=== PATIENT | female | born 1945 | race Hispanic/Latino ===

== ENCOUNTER 2017-12-19 10:54 | Inpatient (IN) | payer MEDICARE ==
[~2017-12-19] VITALS: Ht 157.5 cm; Wt 102.0 kg
[2017-12-19] MEDS ORDERED: FUROSEMIDE 10 MG/ML 4ML VIAL ONE (11:22)
[2017-12-19] MEDS ORDERED: NITROGLYCERIN 1GM/1 INCH PACKET TD ONE (11:22)
[2017-12-19 11:25] LABS: ABG BASE EXCESS -8.3 mmol/L (-2.0-3.0); ABG HCO3 16.2 mmol/L (21.0-28.0); ABG OXYGEN SATURATION 99.3 % (95.0-99.0); ABG PCO2 31 mmHg (32-45)
[2017-12-19 11:32] LABS: BASOPHILS % (AUTO) 0.5 % (0.0-5.0); EOSINOPHILS % (AUTO) 1.1 % (0.0-8.0); HEMATOCRIT 25.5 % (36-48); MEAN CORPUSCULAR HEMOGLOBIN 30.9 pg (27.0-33.0); MEAN CORPUSCULAR HGB CONC 34.1 g/dL (32.0-36.0); MEAN CORPUSCULAR VOLUME 90.6 fL (79-99); MONOCYTES % (AUTO) 6.3 % (3.0-13.0); NEUTROPHILS % (AUTO) 84.1 % (40.0-77.0); PLATELET COUNT (AUTO) 158 K/uL (130-400); RED BLOOD CELL COUNT(AUTO) 2.81 MIL/uL (4.00-5.50); RED CELL DISTRIBUTION WIDTH 14.8 % (11.0-15.5); WHITE BLOOD COUNT (AUTO) 7.4 K/uL (4.8-10.8)
[2017-12-19 11:35] LABS: POTASSIUM 5.2 mmol/L (3.5-5.1)
[2017-12-19 11:40] LABS: ALBUMIN 2.6 g/dL (3.5-5.0); BILIRUBIN,TOTAL 0.3 mg/dL (0.2-1.0); TOTAL PROTEIN, SERUM 6.8 g/dL (6.0-8.3)
[2017-12-19 11:57] LABS: B-TYPE NATRIURETIC PEPTIDE 761 pg/mL (0-100)
[2017-12-19 12:11] LABS: INR 0.99 (0.85-1.15); PARTIAL THROMBOPLASTIN TIME 37.7 SEC (26.3-35.5); PROTHROMBIN TIME 10.4 SEC (9.6-11.6)
[2017-12-19] MEDS ORDERED: MORPHINE SULFATE 2 MG/ML 1ML SYG IV PRN (13:45)
[2017-12-19] MEDS ORDERED: LACTULOSE 20 GM/30 ML UDCUP PO PRN (13:45)
[2017-12-19] MEDS: NITROGLYCERIN 1GM/1 INCH PACKET TD SCH ×2 (13:45→20:45)
[2017-12-19] MEDS ORDERED: ONDANSETRON HCL 4 MG/2 ML VIAL IV PRN (13:45)
[2017-12-19] MEDS ORDERED: HYDRALAZINE HCL 20 MG/ML VIAL IV PRN (13:45)
[2017-12-19] MEDS: FUROSEMIDE 10 MG/ML 4ML VIAL IVP SCH ×2 (14:00→20:43)
[2017-12-19 14:49] VITALS: BP 150/67
[2017-12-19] MEDS ORDERED: IRON18TA PO (15:25)
[2017-12-19] MEDS ORDERED: ISOS60TA4 PO (15:25)
[2017-12-19] MEDS ORDERED: ASPI-555 PO (15:25)
[2017-12-19] MEDS ORDERED: LABE200T5 PO (15:25)
[2017-12-19] MEDS ORDERED: EZET10TA26 PO (15:25)
[2017-12-19] MEDS ORDERED: SODI650T PO (15:25)
[2017-12-19] MEDS ORDERED: FLUT1BLS IH (15:25)
[2017-12-19] MEDS ORDERED: CHOL500050 PO (15:25)
[2017-12-19] MEDS ORDERED: ATOR10 PO (15:25)
[2017-12-19] MEDS ORDERED: TRAZ-185 PO (15:25)
[2017-12-19] MEDS ORDERED: AMLO5TAB7 PO (15:25)
[2017-12-19 16:16] VITALS: BP 148/53
[2017-12-19] MEDS: INSULIN LISPRO 100 UNIT/ML 3ML SQ SCH (16:57)
[2017-12-19] MEDS ORDERED: INSU100I21 SQ (18:10)
[2017-12-19 19:22] VITALS: BP 162/57
[2017-12-19] MEDS: METOPROLOL TARTRATE 25 MG TAB PO SCH (20:44)
[2017-12-19] MEDS: ACETAMINOPHEN 325 MG TAB PO PRN (20:47)
[2017-12-19] MEDS: INSULIN GLARGINE 100 UNITS/ML 10 ML VIAL SQ SCH (21:00)
[2017-12-19 23:25] VITALS: BP 174/71
[2017-12-20] VITALS (7 sets, daily range): BP systolic 144–171; BP diastolic 55–68
[2017-12-20 04:16] LABS: BASOPHILS % (AUTO) 0.5 % (0.0-5.0); EOSINOPHILS % (AUTO) 3.5 % (0.0-8.0); HEMATOCRIT 24.9 % (36-48); LYMPHOCYTES % (AUTO) 15.5 % (21.0-51.0); MEAN CORPUSCULAR HEMOGLOBIN 30.5 pg (27.0-33.0); MEAN CORPUSCULAR HGB CONC 33.5 g/dL (32.0-36.0); MONOCYTES % (AUTO) 8.3 % (3.0-13.0); NEUTROPHILS % (AUTO) 72.2 % (40.0-77.0); NUCLEATED RED BLOOD CELLS 0.1 % (0.0-0.19); PLATELET COUNT (AUTO) 156 K/uL (130-400); RED BLOOD CELL COUNT(AUTO) 2.74 MIL/uL (4.00-5.50); RED CELL DISTRIBUTION WIDTH 14.7 % (11.0-15.5); WHITE BLOOD COUNT (AUTO) 6.3 K/uL (4.8-10.8)
[2017-12-20 04:30] LABS: ALBUMIN 2.4 g/dL (3.5-5.0); BILIRUBIN,TOTAL 0.3 mg/dL (0.2-1.0); CREATININE 4.3 mg/dL (0.5-1.5); POTASSIUM 4.8 mmol/L (3.5-5.1); TOTAL PROTEIN, SERUM 6.5 g/dL (6.0-8.3)
[2017-12-20] MEDS: NITROGLYCERIN 1GM/1 INCH PACKET TD SCH ×3 (04:51→21:15)
[2017-12-20 04:58] LABS: B-TYPE NATRIURETIC PEPTIDE 473 pg/mL (0-100)
[2017-12-20] MEDS: INSULIN LISPRO 100 UNIT/ML 3ML SQ SCH ×3 (06:19→16:36)
[2017-12-20] MEDS ORDERED: ENOXAPARIN SODIUM 40 MG/0.4 ML SYRINGE SQ SCH (09:00)
[2017-12-20] MEDS: METOPROLOL TARTRATE 25 MG TAB PO SCH ×2 (09:04→21:14)
[2017-12-20] MEDS: FUROSEMIDE 10 MG/ML 4ML VIAL IVP SCH ×3 (09:04→21:14)
[2017-12-20] MEDS: PANTOPRAZOLE SODIUM 40 MG TABLET.DR PO SCH (09:10)
[2017-12-20] MEDS ORDERED: METOLAZONE 2.5 MG TABLET PO SCH (09:30)
[2017-12-20] MEDS: SODIUM BICARBONATE 650 MG TAB PO SCH ×2 (10:10→21:14)
[2017-12-20] MEDS: AMLODIPINE BESYLATE 5 MG TAB PO SCH (21:14)
[2017-12-20] MEDS: INSULIN GLARGINE 100 UNITS/ML 10 ML VIAL SQ SCH (21:25)
[2017-12-21 03:45] VITALS: BP 154/53
[2017-12-21 04:01] LABS: HEMATOCRIT 24.3 % (36-48); MEAN CORPUSCULAR HEMOGLOBIN 30.6 pg (27.0-33.0); MEAN CORPUSCULAR HGB CONC 33.8 g/dL (32.0-36.0); MEAN CORPUSCULAR VOLUME 90.4 fL (79-99); PLATELET COUNT (AUTO) 176 K/uL (130-400); RED BLOOD CELL COUNT(AUTO) 2.68 MIL/uL (4.00-5.50); RED CELL DISTRIBUTION WIDTH 14.5 % (11.0-15.5); WHITE BLOOD COUNT (AUTO) 6.3 K/uL (4.8-10.8)
[2017-12-21 04:02] LABS: CREATININE 4.6 mg/dL (0.5-1.5); POTASSIUM 4.6 mmol/L (3.5-5.1)
[2017-12-21 04:04] LABS: % IRON SATURATION 10.3 % (22-44)
[2017-12-21 04:28] LABS: B-TYPE NATRIURETIC PEPTIDE 299 pg/mL (0-100)
[2017-12-21] MEDS: NITROGLYCERIN 1GM/1 INCH PACKET TD SCH ×3 (05:56→21:10)
[2017-12-21] MEDS: INSULIN LISPRO 100 UNIT/ML 3ML SQ SCH ×3 (06:48→17:00)
[2017-12-21 07:19] VITALS: BP 157/56
[2017-12-21] MEDS: EPOETIN ALFA 10,000 UNIT/ML VIAL SQ SCH (08:15)
[2017-12-21] MEDS ORDERED: COMPOUND IV MISC 1 EACH IVSOLN MISC PRN (08:30)
[2017-12-21] MEDS: LABETALOL HCL 100 MG TABLET PO SCH ×2 (10:22→20:54)
[2017-12-21] MEDS: SODIUM BICARBONATE 650 MG TAB PO SCH ×2 (10:29→20:53)
[2017-12-21] MEDS: ENOXAPARIN SODIUM 30 MG/0.3 ML SQ SCH (10:29)
[2017-12-21] MEDS: FUROSEMIDE 10 MG/ML 4ML VIAL IVP SCH ×2 (10:30→20:54)
[2017-12-21] MEDS: PANTOPRAZOLE SODIUM 40 MG TABLET.DR PO SCH (10:30)
[2017-12-21] MEDS: AMLODIPINE BESYLATE 5 MG TAB PO SCH ×2 (10:30→20:53)
[2017-12-21] MEDS: IRON SUCROSE COMPLEX 100 MG in SODIUM CHLORIDE 0.9% 50 ML IV SCH (10:31)
[2017-12-21 11:25] VITALS: BP 162/53
[2017-12-21 16:12] VITALS: BP 147/63
[2017-12-21 19:11] VITALS: BP 142/56
[2017-12-21] MEDS: INSULIN GLARGINE 100 UNITS/ML 10 ML VIAL SQ SCH (20:55)
[2017-12-21] MEDS: ACETAMINOPHEN 325 MG TAB PO PRN (22:57)
[2017-12-21 23:21] VITALS: BP 131/46
[2017-12-22 03:58] VITALS: BP 129/40
[2017-12-22] MEDS: INSULIN LISPRO 100 UNIT/ML 3ML SQ SCH ×3 (05:36→17:27)
[2017-12-22] MEDS: NITROGLYCERIN 1GM/1 INCH PACKET TD SCH ×4 (06:14→21:03)
[2017-12-22 07:51] VITALS: BP 138/55
[2017-12-22] MEDS: EPOETIN ALFA 10,000 UNIT/ML VIAL SQ SCH (08:15)
[2017-12-22 09:06] LABS: HEMATOCRIT 24.1 % (36-48); MEAN CORPUSCULAR HEMOGLOBIN 30.1 pg (27.0-33.0); MEAN CORPUSCULAR HGB CONC 33.5 g/dL (32.0-36.0); MEAN CORPUSCULAR VOLUME 89.8 fL (79-99); PLATELET COUNT (AUTO) 168 K/uL (130-400); RED BLOOD CELL COUNT(AUTO) 2.69 MIL/uL (4.00-5.50); RED CELL DISTRIBUTION WIDTH 13.9 % (11.0-15.5); WHITE BLOOD COUNT (AUTO) 6.1 K/uL (4.8-10.8)
[2017-12-22 09:28] LABS: CREATININE 5.4 mg/dL (0.5-1.5); POTASSIUM 4.6 mmol/L (3.5-5.1)
[2017-12-22] MEDS: AMLODIPINE BESYLATE 5 MG TAB PO SCH ×2 (09:38→20:59)
[2017-12-22] MEDS: LABETALOL HCL 100 MG TABLET PO SCH ×2 (09:38→21:00)
[2017-12-22 10:04] LABS: B-TYPE NATRIURETIC PEPTIDE 244 pg/mL (0-100)
[2017-12-22] MEDS ORDERED: REGADENOSON 0.4 MG/5 ML PF SYG IVP SCH (11:00)
[2017-12-22 13:31] VITALS: BP 101/60
[2017-12-22] MEDS: IRON SUCROSE COMPLEX 100 MG in SODIUM CHLORIDE 0.9% 50 ML IV SCH (14:31)
[2017-12-22] MEDS: PREGABALIN 25 MG CAP PO SCH (14:32)
[2017-12-22] MEDS: ENOXAPARIN SODIUM 30 MG/0.3 ML SQ SCH (14:32)
[2017-12-22] MEDS: PANTOPRAZOLE SODIUM 40 MG TABLET.DR PO SCH (14:33)
[2017-12-22] MEDS: FUROSEMIDE 10 MG/ML 4ML VIAL IVP SCH ×2 (14:33→21:00)
[2017-12-22] MEDS: SODIUM BICARBONATE 650 MG TAB PO SCH ×2 (14:33→21:00)
[2017-12-22 16:00] VITALS: BP 132/54
[2017-12-22 19:27] VITALS: BP 132/51
[2017-12-22] MEDS: INSULIN GLARGINE 100 UNITS/ML 10 ML VIAL SQ SCH (21:01)
[2017-12-22 23:23] VITALS: BP 116/40
[2017-12-23 03:39] VITALS: BP 124/51
[2017-12-23 03:59] LABS: HEMATOCRIT 24.8 % (36-48); MEAN CORPUSCULAR HEMOGLOBIN 30.2 pg (27.0-33.0); MEAN CORPUSCULAR HGB CONC 33.7 g/dL (32.0-36.0); MEAN CORPUSCULAR VOLUME 89.6 fL (79-99); PLATELET COUNT (AUTO) 188 K/uL (130-400); RED BLOOD CELL COUNT(AUTO) 2.76 MIL/uL (4.00-5.50); RED CELL DISTRIBUTION WIDTH 14.2 % (11.0-15.5); WHITE BLOOD COUNT (AUTO) 5.2 K/uL (4.8-10.8)
[2017-12-23 04:09] LABS: CREATININE 5.2 mg/dL (0.5-1.5); POTASSIUM 4.3 mmol/L (3.5-5.1)
[2017-12-23 04:14] LABS: B-TYPE NATRIURETIC PEPTIDE 226 pg/mL (0-100)
[2017-12-23] MEDS: NITROGLYCERIN 1GM/1 INCH PACKET TD SCH (05:08)
[2017-12-23 07:59] VITALS: BP 137/47
[2017-12-23] MEDS: EPOETIN ALFA 10,000 UNIT/ML VIAL SQ SCH (08:15)
[2017-12-23] MEDS: SODIUM BICARBONATE 650 MG TAB PO SCH (09:08)
[2017-12-23] MEDS: PANTOPRAZOLE SODIUM 40 MG TABLET.DR PO SCH (09:08)
[2017-12-23] MEDS: LABETALOL HCL 100 MG TABLET PO SCH (09:08)
[2017-12-23] MEDS: AMLODIPINE BESYLATE 5 MG TAB PO SCH (09:09)
[2017-12-23] MEDS: PREGABALIN 25 MG CAP PO SCH (09:09)
[2017-12-23] MEDS: INSULIN LISPRO 100 UNIT/ML 3ML SQ SCH ×2 (09:18→12:04)
[2017-12-23] MEDS: ENOXAPARIN SODIUM 30 MG/0.3 ML SQ SCH (09:19)
[2017-12-23] MEDS ORDERED: FURO40TA5 PO (09:29)
[2017-12-23] MEDS: IRON SUCROSE COMPLEX 100 MG in SODIUM CHLORIDE 0.9% 50 ML IV SCH (11:57)
[2017-12-23 12:02] VITALS: BP 131/47
== END 2017-12-23 15:35 | disposition home or self-care (01) | DRG 291 ==
LOC: EDH 10:54 → EDHIP 13:44 → 2CH 14:46 → 2AH 12-21 18:58
PROVIDERS: ADMIT Internal Medicine; ATTEND Internal Medicine
PROC: 5A09357 Assistance with Respiratory Ventilation, Less than 24 Consecutive Hours, Continuous Positive Airway Pressure (ICD-10-PCS; principal; 2017-12-20)
PROC: 5A09357 Assistance with Respiratory Ventilation, Less than 24 Consecutive Hours, Continuous Positive Airway Pressure (ICD-10-PCS; 2017-12-21)
PROC: 5A09357 Assistance with Respiratory Ventilation, Less than 24 Consecutive Hours, Continuous Positive Airway Pressure (ICD-10-PCS; 2017-12-22)
PROC: 5A09357 Assistance with Respiratory Ventilation, Less than 24 Consecutive Hours, Continuous Positive Airway Pressure (ICD-10-PCS; 2017-12-23)
DX: I13.2 Hypertensive heart and chronic kidney disease with heart failure and with stage 5 chronic kidney disease, or end stage renal disease (principal); I50.33 Acute on chronic diastolic (congestive) heart failure; N18.6 End stage renal disease; I16.1 Hypertensive emergency; Z68.41 Body mass index [BMI] 40.0-44.9, adult; Z66 Do not resuscitate; E11.22 Type 2 diabetes mellitus with diabetic chronic kidney disease; E66.01 Morbid (severe) obesity due to excess calories; E78.2 Mixed hyperlipidemia; I25.10 Atherosclerotic heart disease of native coronary artery without angina pectoris; K59.00 Constipation, unspecified; G47.00 Insomnia, unspecified; D64.9 Anemia, unspecified; G47.30 Sleep apnea, unspecified; I35.8 Other nonrheumatic aortic valve disorders; E11.21 Type 2 diabetes mellitus with diabetic nephropathy; Z95.1 Presence of aortocoronary bypass graft; Z83.3 Family history of diabetes mellitus; Z82.49 Family history of ischemic heart disease and other diseases of the circulatory system; Z79.899 Other long term (current) drug therapy; Z79.82 Long term (current) use of aspirin; Z91.19 Patient's noncompliance with other medical treatment and regimen; Z90.49 Acquired absence of other specified parts of digestive tract; Z99.2 Dependence on renal dialysis
CPT/HCPCS: 36415; 36600; 71045; 76770; 78452; 80048; 80053; 82550; 82803; 82948; 83540; 83550; 83880; 84484; 85025; 85027; 85610; 85730; 87804; 93005; 93017; 93970; 94660; 96374; 97039; 99291; A4344; A9500; J0885; J1650; J1756; J1940; J2785; Q2038

== ENCOUNTER → 2020-02-07 | Outpatient (CLI) | payer MEDICARE ==
[~2020-02-07] VITALS: Ht 154.9 cm; Wt 109.2 kg
[~2020-02-07] MED LIST: ACET-66 PO; ALPR0.255 PO; AMLO-257 PO; AMLO-258 PO; ASPI-556 PO; ATOR10 PO; CHOL500050 PO; EZET10TA48 PO; FLUT1BLS IH; FOLI0.8T22 PO; FURO40TA5 PO; INSU100I21 SQ; INSU100V12 SQ; IRON18TA PO; ISOS60TA4 PO; LABE200T5 PO; NITR0.4T50 SL; SEVE800PW PO; SODI650T PO; SODIUM CHLORIDE 0.9% 500ML 500 ML IV SCH; TRAZ-185 PO
[2020-02-07 10:15] LABS: BASOPHILS % (AUTO) 0.4 % (0.0-5.0); EOSINOPHILS % (AUTO) 2.6 % (0.0-8.0); HEMATOCRIT 32.4 % (36-48); LYMPHOCYTES % (AUTO) 22.2 % (21.0-51.0); MEAN CORPUSCULAR HEMOGLOBIN 32.7 pg (27.0-33.0); MEAN CORPUSCULAR HGB CONC 32.4 g/dL (32.0-36.0); MEAN CORPUSCULAR VOLUME 100.9 fL (79-99); MONOCYTES % (AUTO) 8.7 % (3.0-13.0); NEUTROPHILS % (AUTO) 65.9 % (40.0-77.0); PLATELET COUNT (AUTO) 156 K/uL (130-400); RED BLOOD CELL COUNT(AUTO) 3.21 MIL/uL (4.00-5.50); RED CELL DISTRIBUTION WIDTH 13.7 % (11.0-15.5); WHITE BLOOD COUNT (AUTO) 5.1 K/uL (4.8-10.8)
[2020-02-07 10:18] LABS: CREATININE 5.3 mg/dL (0.5-1.5); POTASSIUM 4.5 mmol/L (3.5-5.1)
[2020-02-07 10:23] LABS: INR 1.07 (0.85-1.15); PROTHROMBIN TIME 11.4 SEC (9.6-11.6)
[2020-02-07 10:25] LABS: PARTIAL THROMBOPLASTIN TIME 29.1 SEC (26.3-35.5)
[2020-02-11 09:19] VITALS: BP 157/62
== END ==
LOC: EDSTATUS 09:00 → DAH 10:00
PROVIDERS: ATTEND Internal Medicine Cardiovascular Disease
DX: Z01.818 Encounter for other preprocedural examination (principal); I25.119 Atherosclerotic heart disease of native coronary artery with unspecified angina pectoris; J90 Pleural effusion, not elsewhere classified; Z79.01 Long term (current) use of anticoagulants
CPT/HCPCS: 36415; 71045; 80048; 85025; 85610; 85730; 93005

== ENCOUNTER 2020-03-11 07:12 | Day surgery (SDC) | payer MEDICARE ==
[2020-03-06 10:52] LABS: BASOPHILS % (AUTO) 0.4 % (0.0-5.0); EOSINOPHILS % (AUTO) 2.2 % (0.0-8.0); HEMATOCRIT 34.2 % (36-48); LYMPHOCYTES % (AUTO) 23.9 % (21.0-51.0); MEAN CORPUSCULAR HEMOGLOBIN 32.2 pg (27.0-33.0); MEAN CORPUSCULAR HGB CONC 32.5 g/dL (32.0-36.0); MEAN CORPUSCULAR VOLUME 99.1 fL (79-99); NEUTROPHILS % (AUTO) 64.1 % (40.0-77.0); PLATELET COUNT (AUTO) 170 K/uL (130-400); RED BLOOD CELL COUNT(AUTO) 3.45 MIL/uL (4.00-5.50); RED CELL DISTRIBUTION WIDTH 14.2 % (11.0-15.5); WHITE BLOOD COUNT (AUTO) 5.5 K/uL (4.8-10.8)
[2020-03-06 11:00] LABS: CREATININE 5.9 mg/dL (0.5-1.5); POTASSIUM 4.9 mmol/L (3.5-5.1)
[2020-03-06 11:03] LABS: INR 1.08 (0.85-1.15); PROTHROMBIN TIME 11.5 SEC (9.6-11.6)
[2020-03-06 11:04] LABS: PARTIAL THROMBOPLASTIN TIME 28.4 SEC (26.3-35.5)
[2020-03-07 09:46] VITALS: BP 150/69
[~2020-03-11] VITALS: Ht 157.5 cm; Wt 108.7 kg
[2020-03-11] VITALS (9 sets, daily range): BP systolic 127–148; BP diastolic 47–62
[~2020-03-11 07:12] MED LIST changes: -AMLO-257 PO; -CHOL500050 PO; -FURO40TA5 PO; -INSU100I21 SQ; -IRON18TA PO; -ISOS60TA4 PO; +ISOS60TA77 PO; -TRAZ-185 PO
[2020-03-11] MEDS ORDERED: SODIUM CHLORIDE 0.9% 1000ML 1,000 ML IV ONE (08:28)
[2020-03-11] MEDS ORDERED: HYDR-3421 PO (09:10)
[2020-03-11] MEDS ORDERED: NITROGLYCERIN 2 MG/VIAL VIAL IV ONE (09:15)
[2020-03-11] MEDS ORDERED: BIVALIRUDIN 250 MG/VIAL IV ONE (09:15)
[2020-03-11] MEDS ORDERED: IOHEXOL 350 MG/ML 100ML INFUS..BTL IV ONE (09:15)
[2020-03-11] MEDS ORDERED: FENTANYL CITRATE PF 50 MCG/1 ML 2ML VIAL ONE (09:16)
[2020-03-11] MEDS ORDERED: LIDOCAINE HCL 2% 20ML ONE (09:16)
[2020-03-11] MEDS ORDERED: MIDAZOLAM HCL 1 MG/ML 2ML VIAL ONE (09:16)
[2020-03-11] MEDS ORDERED: SODIUM CHLORIDE 0.9% 10 ML VIAL IVP SCH (10:30)
[2020-03-11] MEDS ORDERED: DEXTROSE 50%-WATER 50 ML DISP.SYRIN IV PRN (10:30)
[2020-03-11] MEDS ORDERED: INSULIN HUMULIN R 100 UNIT/ML 3ML SQ SCH (11:30)
== END 2020-03-11 15:00 | disposition home or self-care (01) ==
LOC: DAH 07:12
PROVIDERS: ATTEND Internal Medicine Cardiovascular Disease
DX: I25.118 Atherosclerotic heart disease of native coronary artery with other forms of angina pectoris (principal); Z95.1 Presence of aortocoronary bypass graft; E78.5 Hyperlipidemia, unspecified; E66.01 Morbid (severe) obesity due to excess calories; R94.39 Abnormal result of other cardiovascular function study; I12.0 Hypertensive chronic kidney disease with stage 5 chronic kidney disease or end stage renal disease; E11.22 Type 2 diabetes mellitus with diabetic chronic kidney disease; N18.6 End stage renal disease; Z90.49 Acquired absence of other specified parts of digestive tract; Z98.890 Other specified postprocedural states; G47.30 Sleep apnea, unspecified; Z99.89 Dependence on other enabling machines and devices; Z88.8 Allergy status to other drugs, medicaments and biological substances; Z79.899 Other long term (current) drug therapy
CPT/HCPCS: 36415; 71045; 80048; 82948 ×2; 85025; 85610; 85730; 93005; 93459; A4215; A4216; A4221; A4222; A4223 ×3; A4606; A4663; C1760; C1894 ×2; J1644; J3010; J3490 ×2; J7030; Q9965; Q9967; 99156; 99157; J0583; J2250

== ENCOUNTER 2022-12-21 06:19 | Day surgery (SDC) | payer OTHER, MEDICARE ==
[~2022-12-21] VITALS: Ht 162.6 cm; Wt 104.3 kg
[2022-12-21] VITALS (15 sets, daily range): BP systolic 113–141; BP diastolic 64–81; PULSE 68–117; RESP 13–20
[~2022-12-21 06:19] MED LIST changes: +HYDR-3421 PO; -LABE200T5 PO; +LABE200T7 PO; -NITR0.4T50 SL; -SODIUM CHLORIDE 0.9% 500ML 500 ML IV SCH
[2022-12-21] MEDS ORDERED: GABA300C PO (11:11)
[2022-12-21] MEDS ORDERED: PANT40TA54 PO (11:11)
[2022-12-21] MEDS ORDERED: LIDOCAINE HCL 1% 20 ML VIAL ONE (11:41)
[2022-12-21] MEDS ORDERED: PROPOFOL 10 MG/ML 20ML VIAL IV ONE (11:41)
== END 2022-12-21 15:45 | disposition home or self-care (01) ==
LOC: ENDO 06:19 → DAH 06:24 → ENDO 15:45
PROVIDERS: ATTEND Internal Medicine Gastroenterology
DX: R13.10 Dysphagia, unspecified (principal); K29.80 Duodenitis without bleeding; K29.60 Other gastritis without bleeding; R19.7 Diarrhea, unspecified; R19.4 Change in bowel habit; E11.22 Type 2 diabetes mellitus with diabetic chronic kidney disease; I12.0 Hypertensive chronic kidney disease with stage 5 chronic kidney disease or end stage renal disease; N18.6 End stage renal disease; J44.9 Chronic obstructive pulmonary disease, unspecified; E66.9 Obesity, unspecified; E78.5 Hyperlipidemia, unspecified; M19.90 Unspecified osteoarthritis, unspecified site; I25.10 Atherosclerotic heart disease of native coronary artery without angina pectoris; Z79.01 Long term (current) use of anticoagulants; Z79.899 Other long term (current) drug therapy; Z90.49 Acquired absence of other specified parts of digestive tract; Z98.890 Other specified postprocedural states; Z99.2 Dependence on renal dialysis
CPT/HCPCS: 43239; J2704; A4620; A4215 ×2; A4223; A7002; A4222; A4221; A4663; A4216; J7030; A4606; J3490